=== PATIENT | female | born 1955 | race Caucasian/White ===

== ENCOUNTER 2022-09-04 14:19 | Outpatient (CLI) | payer MEDICARE, SELFPAY ==
--- NOTE | ~2022-09-04 | XR_ITS ---
EXAMINATION: CT abdomen pelvis wo con, XR abdomen/kub 1V DATE: 09/04/2022 14:44 INDICATION: Left ureteral stone TECHNIQUE: 1. Computed tomography (CT) of the abdomen and pelvis was performed without intravenous contrast. Aut omated exposure control and iterative reconstruction technique were employed. The dose-length product was 951.34 mGy-cm. 2. AP view of the abdomen and pelvis was obtained on 2 radiographs. COMPARISON: None FINDINGS: CT: Mild discoid atelectasis in the bilateral lower lobes along side a moderate-sized sliding-type hiatal hernia. Heart size normal. No pericardial or pleural effusion. Diffuse hepatic steatosis with focal sparing along the gallbladder fossa. Couple small calcified gallstones in the dependent aspect of the normal appearing gallbladder. Several splenic calcifications consistent with old granulomatous disea se. Pancreas and bilateral adrenal glands are normal. Splenorenal collaterals suggesting portal venou s hypertension. Right kidney and ureter are normal. 5 x 3 mm at least partially obstructing stone at the left ureteropelvic junction with mild left hydronephrosis. There is an additional 1 mm punctate s tone at the lower pole calyx of the left kidney. No other more distal left ureteral stones. Multiple phleboliths in the pelvis. Incidentally Noted is a small retrocardiac accessory left renal vein drain ing the lower pole. Bladder is normal. Bowels including the appendix are normal. No free intraperiton eal gas or fluid. No pathologically enlarged abdominal or pelvic lymphadenopathy. L5 spondylolysis wi th bilateral pars interarticularis defects and 4-5 mm anterolisthesis of L5 on S1. Disc height loss, severe at L4-L5 and mild at L5-S1. KUB: The stone at the left ureteropelvic junction is visible on the plain radiographs projecting medial to the lower pole of the left kidney slightly lateral to the distal tip of the left transverse process of L4 on the more caudal centered image and slightly more caudally between the level of the transvers e processes of L4 and L5 on the more cephalad centered image. The stone has been indicated on the rad iographs with an arrow. IMPRESSION: 1. At least partially obstructing 5 x 3 mm stone at the left ureteropelvic junction with mild left hy dronephrosis. 2. Diffuse hepatic steatosis. 3. Splenorenal collaterals suggesting possible portal venous hypertension. 4. Moderate-sized sliding-type hiatal hernia. 5. L5 spondylolysis with bilateral pars interarticularis defects and 4-5 mm anterolisthesis L5 on S1. Reviewed, dictated and finalized at location A. EYING TECHNICIAN IMPRESSION: 1. At least partially obstructing 5 x 3 mm stone at the left ureteropelvic junc tion with mild left hydronephrosis. 2. Diffuse hepatic steatosis. 3. Splenorenal collaterals suggesting possible portal venous hypertension. 4. Moderate-sized sliding-type hiatal hernia. 5. L5 spondylolysis with bilateral pars interarticularis defects and 4-5 mm ant erolisthesis L5 on S1.
== END 2022-09-04 14:20 ==
LOC: GOSHIMG 14:21
PROVIDERS: PCP Nurse Practitioner Adult Health; Visit Provider Nurse Practitioner Adult Health
DX: N20.1 Calculus of ureter (principal); K76.0 Fatty (change of) liver, not elsewhere classified; K44.9 Diaphragmatic hernia without obstruction or gangrene; M47.896 Other spondylosis, lumbar region
CPT/HCPCS: 74018; 74176

== ENCOUNTER 2022-09-15 10:36 | Outpatient (CLI) | payer MEDICARE, SELFPAY ==
--- NOTE | 2022-09-15 10:43 | ECG_ITS ---
Measurements Intervals [place] Rate: 79 P: 33 FL: 165 QRS: -4 QRSD: 92 T: 14 QT: 369 QTc: 424 Interpretive Statements SINUS RHYTHM INFERIOR INFARCT, AGE INDETERMINATE BORDERLINE ST ABNORMALITY- HIGH LATERAL LEADS ABNORMAL ECG NO PREVIOUS ECG AVAILABLE FOR COMPARISON Electronically Signed On 09-15-2022 11:15:40 CLIENT RENEWAL SPECIALIST by Wesley Mcclain D.O.
[2022-09-15 12:16] LABS: Prothrombin Time 12.9 Seconds (11.1-14.7)
== END 2022-09-15 10:37 | disposition home or self-care (01) ==
LOC: ANHSURGERY 10:41
PROVIDERS: PCP Family Medicine; Visit Provider Urology
DX: N20.1 Calculus of ureter (principal); I10 Essential (primary) hypertension; Z01.818 Encounter for other preprocedural examination; R94.31 Abnormal electrocardiogram [ECG] [EKG]
CPT/HCPCS: 36415; 85610; 85730; 87086; 93005

== ENCOUNTER 2022-09-18 02:20 | Day surgery (SDC) | payer MEDICARE, SELFPAY ==
--- NOTE | 2022-09-14 07:27 | P.HP_ITS ---
History of Present Illness History of Present Illness Consent: Risks, benefits, and alternatives have been discussed and questions answered. Patient agrees to proceed with procedure. Chief complaint: left ureteral stone Narrative: Annika Garcia is a 67 year old female with intermittent left flank pain. Imaging, both in [place] and at [facility], reveals a 5 x 8 mm left proximal to mid ureteral calculus. The stone is lightly calcified. After disc ussion of options she has elected to proceed with left ESWL. She is aware of the risk including, but not limited to, need for additional procedures, postoperative hematuria, adverse cardiopulmonary events in perinephric hematoma. Review of Systems Cardiovascular: Cardiovascular: Denies chest pain, Denies lightheadedness, Denies palpitations and Denies dyspnea Respiratory: Respiratory: Denies dyspnea Gastrointestinal: Gastrointestinal: Denies diarrhea, Denies nausea and Denies vomiting Genitourinary: Genitourinary: Denies hematuria and Denies dysuria Endocrine: Endocrine: Denies palpitations Exam Const: General: no acute distress Resp: Effort & Inspection: normal respiratory effort GI: Inspection: non-distended GI Palp: No abdominal tenderness and No Guarding due to palpation present (GI) Auscultation: normal bowel sounds Assessment and Plan Assessment and plan (1) Left ureteral stone: Code(s): N20.1 - Calculus of ureter Status: Acute Plan * Left ESWL, possible cystoscopy with left ureteral stent placement
--- NOTE | 2022-09-14 14:20 | PC.NURSE ---
Report to the Outpatient Waiting Room, entrance under the green pavilion located off [facility], at time _0800 on date ___09/18/22____. Planned Procedure Time: 1000 . Time changes happen often and if your time is changed the preop area will call you the afternoon before. - You and your visitor will be asked to self-screen and do not enter if you have any COVID symptoms. - Only one visitor is requested with a max of two and NO children visitors are allowed at this time. - The patient visitor may be requested to leave or wait in car when not with patient due to distancing restrictions. - A mask is optional within the hospital. Patients may have clear liquids (water, carbonated beverages, clear teas, apple juice) until 3 hours prior to surgery with a maximum of 20 ounces. - No food from midnight until time of surgery - Infants may have breast milk until 4 hours before surgery, infant formula 6 hours prior to surgery. - Children will be allowed to drink immediately following surgery. If applicable, please bring a bottle or sippy cup to assist with drinking. Juice, water, soda, and popsicles are readily available. For infants on formula, please bring formula the day of surgery. Pacifiers are allowed. Take the following medications with a SIP of water the morning of surgery: __LEVOTHYROXINE Medications to discontinue per physician ____NONE Date to take last dose Please no make-up, nail anguillan, hairspray, perfume, deodorant, or body powder the day of surgery. No jewelry (including any body piercings) or valuables the day of surgery, leave them at home. Please take a shower or bath the night before, or the morning of, surgery with an antibacterial soap. Wear comfortable, loose fitting clothing. Children are encouraged to wear pajamas. - Jewelry must be removed prior to entering the operating room. Rings and piercings that are not removed may be cut off. - The hospital will not accept responsibility for valuables. - Please leave all valuables, including medications, at home the day of surgery. If you are going home after surgery, a licensed trolley coach driver must drive you home. - NO public transportation without another adult if you receive anesthesia. - We recommend that an adult stay with you for 24 hours following discharge. - We also recommend that you do not drive, make important decision, drink alcoholic beverages, or take any drugs that were not prescribed by your health care provider for at least 24 hours after your discharge time. Follow any additional instructions given to you from your surgeon. If you or anyone in your household have experienced Covid symptoms in the past week, please notify your surgeon or the nurse liaison at the phone number below for possible testing. Telephone instructions given to ___PATIENT and asked if any additional questions and then verbalized understanding. Patient advised to call surgeon office or pre surgery nurse liaison [phone] if any additional questions.
[2022-09-14 14:44] VITALS: BMI 35.9
[2022-09-18] VITALS (11 sets, daily range): BP systolic 155–196; BP diastolic 85–112; PULSE 72–103; RESP 12–20; TEMP 36.2–36.9; O2SAT 93–100
--- NOTE | ~2022-09-18 | XR_ITS ---
EXAMINATION: XR abdomen/kub 1V INDICATION: Left ureteral stone TECHNIQUE: Supine views of the abdomen were obtained on 2 radiographs. COMPARISON: 09/04/2022 FINDINGS: The previously described left ureteral stone is not definitely identified. There are phlebo liths of the pelvis. The bowel gas pattern is normal. The visualized lung bases are clear. IMPRESSION: 1. Previously described left ureteral stone not definitely identified. Reviewed, dictated and finalized at location B. RITY PATROL OFFICER
--- NOTE | ~2022-09-18 | CT_ITS ---
EXAMINATION: CT abdomen pelvis wo con DATE: 09/18/2022 08:52 INDICATION: Left ureteral stone. TECHNIQUE: Computed tomography (CT) of the abdomen and pelvis was performed without intravenous contr ast. Automated exposure control and iterative reconstruction technique were employed. The dose-length product was 356.21 mGy-cm. COMPARISON: CT abdomen and pelvis 09/04/2022 FINDINGS: The visualized portions of the lung bases demonstrate mild atelectasis. No pleural effusion . The heart size is normal. No pericardial effusion. There is a large sliding hiatal hernia. There is diffuse hepatic steatosis. There are gallstones in the gallbladder, which is normal in size. Calcifi cations in the spleen are consistent with old granulomatous disease. The pancreas and adrenal glands are normal. Right kidney is normal. There is mild left hydronephrosis. There is a 5 mm stone at left ureteropelvic junction. There are no dilated loops of bowel. The appendix is not visualized. There ar e no pathologically enlarged lymph nodes. There is no free intraperitoneal fluid. There is a splenore nal venous collateral, consistent with portal venous hypertension. There is severe lumbar spondylosis . There are chronic bilateral L5 pars defects with 4 mm anterolisthesis of L5 on S1. There is interbo dy fusion at T8-T9. IMPRESSION: 1. 5 mm stone at left ureteropelvic junction with mild left hydronephrosis. 2. Large sliding hiatal hernia. 3. Portal venous hypertension. 4. Diffuse hepatic steatosis. Reviewed, dictated and finalized at location A. ER WORKER
--- NOTE | 2022-09-18 06:54 | WPDHPUPDATE1 ---
History and Physical Update Update Date/Time: 09/18/22 06:54 History and Physical has been reviewed, including an updated exam of the patient. There are NO changes in the patient's condition. Risks, benefits, and alternatives have been discussed and questions answered. Patient agrees to proceed with procedure.
--- NOTE | 2022-09-18 08:55 | SUR.PREOP ---
pt to ct scan @ 0843 to visulize kidney stone
--- NOTE | 2022-09-18 09:17 | P.PNAN_ITS ---
Anes - Initial Pre Proc Eval Procedure: Operation Date: 09/18/22 10:00 Proposed Procedures p Left Extracorporeal Shock Wave Lithotripsy, - Dada Sosa MD s Possible Stent Placement - Dada Sosa MD Date/Time: 09/18/22 09:17 Surgeon: Dada Sosa MD Pre Op Diagnosis: left ureteral stone Patient Data Age: 67 Gender: F Height: 1.55 m Weight: 87.7 kg Allergies Allergy/AdvReac Type Severity Reaction Status Date / Time morphine AdvReac Severe Palpitation Verified 09/18/22 08:58 s erythromycin base AdvReac Intermediate Other Verified 09/18/22 08:58 hydrochlorothiazide AdvReac Intermediate Itching Verified 09/18/22 08:58 Sulfa (Sulfonamide AdvReac Intermediate Itching Verified 09/18/22 08:58 Antibiotics) ciprofloxacin [From Cipro] AdvReac Mild Gastrointestinal Verified 09/18/22 08:58 Upset AND MUSCLE PAIN codeine AdvReac Mild Nausea and Verified 09/18/22 08:58 Vomiting nitrofurantoin AdvReac Mild Diarrhea Verified 09/18/22 08:58 [From Macrobid] Home Medications Medication Instructions Recorded Confirmed Type levothyroxine 75 mcg tablet 75 mcg PO DAILY 09/14/22 09/14/22 History losartan 50 mg tablet 50 mg PO DAILY 09/14/22 09/18/22 History omeprazole 40 mg capsule,delayed 40 mg PO DAILY 09/14/22 09/18/22 History release Patient hx anesthesia problems: none Family hx anesthesia problems: none Results Review: All pre-operative results and documents have been reviewed as part of the pre- operative evaluation. [facility] Past Medical History Medical History (Updated 09/18/22 @ 09:18 by Prosepr Flores MD) HTN (hypertension) Hypothyroidism Obesity Social History Social History Smoking packs per day: 0.5 Smoking cigarettes per day: 10.0 Years smoked: 5 Smoking pack-years: 2.50 Smoking status: Former smoker Tobacco type: cigarettes Smoking end date: 09/06/79 Living arrangements: alone Spiritual care concerns: No Anes - Eval Final PreProcedure Day of Procedure 09/18/22 09:17 Patient weight: obese Heart: regular rate and rhythm Lungs: clear to auscultation Airway: Mallampati scale class II Neurological: alert and oriented Last oral intake: >/= 8 hours ASA classification: III Emergent: no Anesthetic plan: proceed Anesthesia type and monitoring: general LMA and standard monitoring Results Review: All pre-operative results and documents have been reviewed as part of the pre- operative evaluation. Informed Consent: The patient's anesthetic plan and its attendant risks and benefits were discussed with the patient/family/POA. Questions were solicited and answers provided to the satisfaction of the patient/family/POA.
[2022-09-18] MEDS: LACTATED RINGERS 1,000 ML 30 ML IV CONT (09:20)
--- NOTE | 2022-09-18 09:22 | SUR.PREOP ---
0910 dr magallon aware of [id number] bp 196/102 to procedure with surgery.
[2022-09-18] MEDS: ceFAZolin 2 GM/D5W 50 ML 2 GM/50 ML BAG IVPB (09:57)
--- NOTE | 2022-09-18 10:13 | W.PM.PROC2 ---
Procedure Note - Detailed Date of Procedure 09/18/22 Pre-op Diagnosis Left ureteral stone Post-op Diagnosis Same Procedure Performed Left ESWL Surgeon Dada Sosa MD Anesthesia General Description of Procedure The patient was brought to the operative suite where she was placed in the supine position on the Dornier lithotripsy table. The focal point of the lithotripter was placed at a 6-7mm left proximal ureteral calculus. A total of 3000 shocks were delivered at a power setting of 4. There appeared to be good fragmentation of the stone. The patient tolerated the procedure well and was taken to the recovery room in good condition. Drains No Packing No Pathology Yes Complications No immediate complications
[2022-09-18] MEDS: fentaNYL CITRATE INJ (*CRX) 100 MCG/2 ML VIAL 25 MCG IV PUSH ×8 (10:56→12:20)
[2022-09-18] MEDS: ACETAMINOPHEN 500 MG TABLET 1000 MG PO (13:02)
== END 2022-09-18 14:07 | disposition home or self-care (01) ==
PROVIDERS: PCP Family Medicine; Visit Provider Urology
PROC: (CPT 50590; principal; 2022-09-18 10:00)
DX: N20.1 Calculus of ureter (principal)
CPT/HCPCS: 50590; 36415; 74018; 74176; 85610; 85730; 87086; 93005; A9270; J0690; J1100; J2250; J2405; J2704; J3010; J7120

== ENCOUNTER 2022-10-06 11:07 | Outpatient (CLI) | payer MEDICARE, SELFPAY ==
--- NOTE | ~2022-10-06 | US_ITS ---
EXAMINATION: US renal BI DATE: 10/06/2022 11:47 INDICATION: Left-sided ureteral stone TECHNIQUE: Multiple grayscale and Doppler ultrasound images of the kidneys were obtained. COMPARISON: CT, 09/18/2022 FINDINGS: The right kidney measures 10.2 x 4.6 x 4.7 cm. The left kidney measures 11.2 x 5.6 x 6.4 cm . There appears to be a subcapsular fluid collection surrounding the left kidney. The kidneys demonst rate normal parenchymal echogenicity. There is no hydronephrosis. The bladder is normal. IMPRESSION: 1. Apparent subcapsular fluid collection surrounding the left kidney could reflect seroma or urinoma. Recommend clinical correlation for acute kidney injury, left flank pain, or new onset hypertension w hich could reflect Page kidney. Reviewed, dictated and finalized at location L. F ACCOUNTANT IMPRESSION: 1. Apparent subcapsular fluid collection surrounding the left kidney could refl ect seroma or urinoma. Recommend clinical correlation for acute kidney injury, left flank pain, or new onset hypertension which could reflect Page kidney.
== END 2022-10-06 11:08 | disposition home or self-care (01) ==
LOC: ANHIMG 11:09
PROVIDERS: PCP Family Medicine; Visit Provider Urology
DX: N20.1 Calculus of ureter (principal)
CPT/HCPCS: 76775